=== PATIENT | female | born 1950 | race Caucasian/White ===

== ENCOUNTER 2018-12-16 13:47 | Inpatient (IN) | payer MEDICARE, BC ==
[2018-12-16] MEDS ORDERED: SODIUM CHLORIDE 0.9% 1,000 ML IV STA (14:25)
[2018-12-16] MEDS ORDERED: ACETAMINOPHEN TAB 325 MG TAB PO STA (14:26)
[2018-12-16 14:48] LABS: Basophils # (A) 0.1 k/uL (0-0.2); Basophils % (A) 0 %; Eosinophils % (A) 0 %; HCT 41.1 % (34.0-46.0); HGB 13.6 gm/dL (11.4-16.0); Lymphocytes % (A) 7 %; MCH 28.7 pg (25.0-35.0); MCV 86.9 fL (80.0-100.0); Mean Platelet Volume 6.6; Monocytes # (A) 0.6 k/uL (0-1.0); Monocytes % (A) 4 %; Neutrophils # (A) 13.8 k/uL (1.3-7.7); Neutrophils % (A) 89 %; Platelet Count 286 k/uL (150-450); RBC 4.73 m/uL (3.80-5.40); RDW 13.4 % (11.5-15.5); WBC 15.5 k/uL (3.8-10.6)
[2018-12-16 14:57] LABS: ALT 12 U/L (9-52); AST 17 U/L (14-36); African American GFR (CKD) >90 (>60 ml/min/1.73 sqM); Albumin 4.2 g/dL (3.5-5.0); Alkaline Phosphatase 87 U/L (38-126); Anion Gap 9 mmol/L; Blood Urea Nitrogen 16 mg/dL (7-17); Calcium 9.1 mg/dL (8.4-10.2); Carbon Dioxide 27 mmol/L (22-30); Chloride 101 mmol/L (98-107); Glucose 132 mg/dL (74-99); Lipase 30 U/L (23-300); Magnesium 1.7 mg/dL (1.6-2.3); Potassium 3.5 mmol/L (3.5-5.1); Sodium 137 mmol/L (137-145); Total Bilirubin 1.2 mg/dL (0.2-1.3)
--- NOTE | 2018-12-16 15:03 | ED ---
General Adult HPI <Rubén Schmitt - Last Filed: 12/16/18 18:28> - General Source: patient, RN notes reviewed, old records reviewed Mode of arrival: ambulatory Limitations: no limitations <Adolph King - Last Filed: 12/16/18 22:52> - General Chief complaint: Abdominal Pain Stated complaint: Abd pain Time Seen by Provider: 12/16/18 14:00 - History of Present Illness Initial comments: 68-year-old female patient past medical history of hypertension, status post cholecystectomy, hysterectomy, partial thyroidectomy presents ED with 2 days of abdominal pain periumbilically as well as her right lower quadrant with associated nausea. Patient denies any emesis. Patient states her bowel movements have been normal, denies any diarrhea. Patient denies any chest pain shortness of breath. Patient denies any other complaints at this time. Systemic: Pt denies fatigue, fever/chills, rash. Pt denies weakness, night sweats, weight loss. Neuro: Pt denies headache, visual disturbances, syncope or pre-syncope. HEENT: Pt denies ocular discharge or irritation, otalgia, rhinorrhea, pharyngitis or notable lymphadenopathy. Cardiopulmonary: Pt denies chest pain, SOB, heart palpitations, dyspnea on exertion. Abdominal/GI: Pt denies v/d. : Pt denies dysuria, burning w/ urination, frequency/urgency. Denies new onset urinary or bowel incontinence. MSK: Pt denies myalgia, loss of strength or function in extremities. Neuro: Pt denies new onset weakness, paresthesias. (Adolph King) - Related Data Home Medications Medication Instructions Recorded Confirmed Levothyroxine Sodium 88 mcg PO DAILY 12/16/18 12/16/18 Multivitamins, Thera [Multivitamin 1 tab PO DAILY 12/16/18 12/16/18 (formulary)] Naproxen Sodium [Aleve] 440 mg PO Q12HR PRN 12/16/18 12/16/18 Thyroid, Pork [[place] Thyroid] 30 mg PO DAILY 12/16/18 12/16/18 amLODIPine [Norvasc] 5 mg PO DAILY 12/16/18 12/16/18 Allergies Allergy/AdvReac Type Severity Reaction Status Date / Time No Known Allergies Allergy Verified 12/16/18 18:15 Review of Systems ROS Other: All systems not noted in ROS Statement are negative. <SchmittRubén - Last Filed: 12/16/18 18:28> ROS Other: All systems not noted in ROS Statement are negative. <Adolph King - Last Filed: 12/16/18 22:52> ROS Statement: Those systems with pertinent positive or pertinent negative responses have been documented in the HPI. Past Medical History Past Medical History: Hypertension History of Any Multi-Drug Resistant Organisms: None Reported Past Surgical History: Section, Cholecystectomy, Hysterectomy Additional Past Surgical History / Comment(s): patrtia thyroid removal Past Psychological History: No Psychological Hx Reported Smoking Status: Never smoker Past Alcohol Use History: None Reported Past Drug Use History: None Reported <Adolph King - Last Filed: 12/16/18 22:52> General Exam Limitations: no limitations <Adolph King - Last Filed: 12/16/18 22:52> - General Exam Comments Initial Comments: Constitutional: NAD, AOX3, Pt has pleasant affect. HEENT: NC/AT, trachea midline, neck supple, no lymphadenopathy. Posterior pharynx non erythematous, without exudates. External ears appear normal, without discharge. Mucous membranes moist. Eyes PERRLA, EOM intact. There is no scleral icterus. No pallor noted. Cardiopulmonary: RRR, no murmurs, rubs or gallops, no JVD noted. Lungs CTAB in anterior and posterior cisneros. No peripheral edema. Abdominal exam: Abdomen soft and non-distended. Abdomen mildly tender to palpation periumbilical as well as right lower quadrant region. No guarding or rigidity no ecchymoses no others of abdominal tenderness.. Bowel sounds active in LLQ. No hepatosplenomegaly. No ecchymosis Neuro: CN II-XII grossly intact. No nuchal rigidity. No raccon eyes, no carias sign, no hemotympanum. No cervical spinal tenderness. MSK: No posterior calf tenderness bilaterally, homans sign negative bilaterally. Posterior tibialis and radial pulse +2 bilaterally. Sensation intact in upper and lower extremities. Full active ROM in upper and lower extremities, 5/5 stregnth. (Adolph King) Course Vital Signs 12/16/18 12/16/18 12/16/18 13:54 15:14 17:46 Temperature 98.4 F 98.6 F Pulse Rate 124 H 81 70 Respiratory 20 18 19 Rate Blood Pressure 134/76 142/81 150/81 O2 Sat by Pulse 97 99 100 Oximetry 12/16/18 12/16/18 19:20 20:09 Temperature 98.9 F Pulse Rate 70 Respiratory 19 Rate Blood Pressure 170/79 O2 Sat by Pulse 100 Oximetry Medical Decision Making - Lab Data Result diagrams: 12/16/18 14:19 12/16/18 14:19 <Rubén Schmitt - Last Filed: 12/16/18 18:28> - Lab Data Result diagrams: 12/16/18 14:19 12/16/18 14:19 <ChristineAdolph J - Last Filed: 12/16/18 22:52> - Medical Decision Making Patient reevaluated by myself, Dr. Schmitt. Patient resting comfortably in bed. Patient states discomfort is minimal at rest. Patient states discomfort is worse with movement and examination. Abdomen is soft with moderate tenderness in the right lower quadrant with mild guarding. Patient updated on results and plan. Patient did previously seen Dr. Lockett approximately [address] Belle was notified through [facility] in the operating room of patient. Patient was reexamined and reevaluated by myself, Dr. Schmitt. I do agree with PA Findings. This includes diagnostic interpretation and treatment plan. (Rubén Schmitt) 68-year-old female patient past medical history of hypertension, status post cholecystectomy, hysterectomy, partial thyroidectomy presents ED with 2 days of abdominal pain periumbilically as well as her right lower quadrant with associated nausea. Patient denies any emesis. Patient states her bowel movements have been normal, denies any diarrhea. Patient denies any chest pain shortness of breath. Patient denies any other complaints at this time. Patient vital signs initially display tachycardia, likely secondary to pain. Resolved with analgesia IV fluids. Physical exam displayed: Abdomen mildly tender to palpation periumbilical as well as right lower quadrant region. No guarding or rigidity no ecchymoses no others of abdominal tenderness. Laboratory investigations revealed mild leukocytosis of 15.5, CMP revealed mild cytosis of 132. Lactic acid within normal limits. Magnesium lipase within normal limits. UA non-impressive. CT abdomen and pelvis displayed unconjugated mild acute appendicitis no abscess or free air. Associated mild regional small bowel ileus, 8 mm nonobstructing left renal calculi, incidental large 7 cm right hep atic dome cyst. Patient previously aware of cyst which has apparently grown 1 cm in the last 6 years. Initial imaging report stated that pt had diverticulitis, radiologist Dr. Villalta was contacted who stated he will addend report to reflect appendicits and not diverticulitis. Patient began on zosyn. Will be admitted to Dr. Jansen. Case discusse with Dr. Schmitt. (Adolph King) - Lab Data Lab Results 12/16/18 12/16/18 12/16/18 Range/Units 14:19 14:19 14:19 WBC 15.5 H (3.8-10.6) k/uL RBC 4.73 (3.80-5.40) m/uL Hgb 13.6 (11.4-16.0) gm/dL Hct 41.1 (34.0-46.0) % MCV 86.9 (80.0-100.0) fL MCH 28.7 (25.0-35.0) pg MCHC 33.0 (31.0-37.0) g/dL RDW 13.4 (11.5-15.5) % Plt Count 286 (150-450) k/uL Neutrophils % 89 % Lymphocytes % 7 % Monocytes % 4 % Eosinophils % 0 % Basophils % 0 % Neutrophils # 13.8 H (1.3-7.7) k/uL Lymphocytes # 1.0 (1.0-4.8) k/uL Monocytes # 0.6 (0-1.0) k/uL Eosinophils # 0.0 (0-0.7) k/uL Basophils # 0.1 (0-0.2) k/uL Sodium 137 (137-145) mmol/L Potassium 3.5 (3.5-5.1) mmol/L Chloride 101 (98-107) mmol/L Carbon Dioxide 27 (22-30) mmol/L Anion Gap 9 mmol/L BUN 16 (7-17) mg/dL Creatinine 0.65 (0.52-1.04) mg/dL Est GFR (CKD-EPI)AfAm >90 (>60 ml/min/1.73 sqM) Est GFR (CKD-EPI)NonAf >90 (>60 ml/min/1.73 sqM) Glucose 132 H (74-99) mg/dL Plasma Lactic Acid Raji 1.5 (0.7-2.0) mmol/L Calcium 9.1 (8.4-10.2) mg/dL Magnesium 1.7 (1.6-2.3) mg/dL Total Bilirubin 1.2 (0.2-1.3) mg/dL AST 17 (14-36) U/L ALT 12 (9-52) U/L Alkaline Phosphatase 87 (38-126) U/L Total Protein 7.0 (6.3-8.2) g/dL Albumin 4.2 (3.5-5.0) g/dL Lipase 30 (23-300) U/L Urine Color Urine Appearance (Clear) Urine pH (5.0-8.0) Ur Specific [place] (1.001-1.035) Urine Protein (Negative) Urine Glucose (UA) (Negative) Urine Ketones (Negative) Urine Blood (Negative) Urine Nitrite (Negative) Urine Bilirubin (Negative) Urine Urobilinogen (<2.0) mg/dL Ur Leukocyte Esterase (Negative) Urine RBC (0-5) /hpf Urine WBC (0-5) /hpf Ur Squamous Epith Cells (0-4) /hpf Amorphous Sediment (None) /hpf 12/16/18 Range/Units 14:42 WBC (3.8-10.6) k/uL RBC (3.80-5.40) m/uL Hgb (11.4-16.0) gm/dL Hct (34.0-46.0) % MCV (80.0-100.0) fL MCH (25.0-35.0) pg MCHC (31.0-37.0) g/dL RDW (11.5-15.5) % Plt Count (150-450) k/uL Neutrophils % % Lymphocytes % % Monocytes % % Eosinophils % % Basophils % % Neutrophils # (1.3-7.7) k/uL Lymphocytes # (1.0-4.8) k/uL Monocytes # (0-1.0) k/uL Eosinophils # (0-0.7) k/uL Basophils # (0-0.2) k/uL Sodium (137-145) mmol/L Potassium (3.5-5.1) mmol/L Chloride (98-107) mmol/L Carbon Dioxide (22-30) mmol/L Anion Gap mmol/L BUN (7-17) mg/dL Creatinine (0.52-1.04) mg/dL Est GFR (CKD-EPI)AfAm (>60 ml/min/1.73 sqM) Est GFR (CKD-EPI)NonAf (>60 ml/min/1.73 sqM) Glucose (74-99) mg/dL Plasma Lactic Acid Raji (0.7-2.0) mmol/L Calcium (8.4-10.2) mg/dL Magnesium (1.6-2.3) mg/dL Total Bilirubin (0.2-1.3) mg/dL AST (14-36) U/L ALT (9-52) U/L Alkaline Phosphatase (38-126) U/L Total Protein (6.3-8.2) g/dL Albumin (3.5-5.0) g/dL Lipase (23-300) U/L Urine Color Yellow Urine Appearance Clear (Clear) Urine pH 6.5 (5.0-8.0) Ur Specific [place] 1.007 (1.001-1.035) Urine Protein Negative (Negative) Urine Glucose (UA) Negative (Negative) Urine Ketones Negative (Negative) Urine Blood Trace H (Negative) Urine Nitrite Negative (Negative) Urine Bilirubin Negative (Negative) Urine Urobilinogen <2.0 (<2.0) mg/dL Ur Leukocyte Esterase Negative (Negative) Urine RBC 2 (0-5) /hpf Urine WBC 3 (0-5) /hpf Ur Squamous Epith Cells 1 (0-4) /hpf Amorphous Sediment Rare H (None) /hpf Disposition <Rubén Schmitt - Last Filed: 12/16/18 18:28> Is patient prescribed a controlled substance at d/c from ED?: No <Adolph King - Last Filed: 12/16/18 22:52> Clinical Impression: Appendicitis, acute Disposition: ADMITTED IP TO THIS HOSP Condition: Serious
[2018-12-16 15:20] LABS: Amorphous Sediment,Urine Rare /hpf; Appearance,Urine Clear (Clear); Bilirubin,Urine Negative (Negative); Blood,Urine Trace (Negative); Color,Urine Yellow; Glucose,Urine (UA) Negative (Negative); Ketones,Urine Negative (Negative); Leukocyte Esterase,Urine Negative (Negative); Nitrite,Urine Negative (Negative); PH, Urine 6.5 (5.0-8.0); Protein,Urine Negative (Negative); RBC,Urine 2 /hpf (0-5); Specific Gravity,Urine 1.007 (1.001-1.035); Squamous Epithelial Cell,Urine 1 /hpf (0-4); Urobilinogen,Urine <2.0 mg/dL (<2.0); WBC,Urine 3 /hpf (0-5)
--- NOTE | 2018-12-16 16:00 | CT ---
EXAMINATION TYPE: CT abdomen pelvis w con DATE OF EXAM: 12/16/2018 COMPARISON: NONE HISTORY: 68-year-old female Right lower quadrant pain, bloating and nausea. TECHNIQUE: Contiguous axial scanning of the abdomen and pelvis following administration of 100 ml Iso rox 300 IV contrast. Delayed images through the kidneys and coronal/sagittal reconstructions perform ed. CT DLP: 832.5 mGycm Automated exposure control for dose reduction was used. FINDINGS: Heart normal size without pericardial effusion. Lung bases clear without pleural effusion. Large cyst right hepatic dome measuring 6.9 cm. Additional smaller cyst just adjacent in the right li josephine lobe measuring 7 mm. Portal venous system is patent. No biliary ductal dilatation. Gallbladder not seen, likely surgically absent. Adrenal glands, right kidney, spleen, pancreas appear within normal limits. 8 mm nonobstructive calculus upper pole left kidney. No dilated small bowel, free fluid, or free air. Prominent fluid-filled small bowel loops in the lower abdomen and pelvis with some mild mesenteric st randing centered around a fluid-filled and mildly thickened appendix measuring up to 1 cm. Refer to a xial image 70 and coronal image 28. No mesenteric or retroperitoneal lymphadenopathy. Bladder and distended. Pelvic phleboliths. Uterus surgically absent. Neither ovary clearly delineated . No abnormal fluid collection in the pelvis or pelvic lymphadenopathy. Bones: Degenerative changes of the hips. Left L5 hemisacralization with degenerative changes lower duncan mbar spine. Grade 1 anterolisthesis at L4-L5. IMPRESSION: 1. EXAM POSITIVE FOR UNCOMPLICATED, MILD ACUTE DIVERTICULITIS. NO ABSCESS OR FREE AIR. 2. AN ASSOCIATED MILD REGIONAL SMALL BOWEL ILEUS. 3. 8 MM NONOBSTRUCTIVE LEFT RENAL CALCULUS. 4. INCIDENTAL LARGE 7 CM RIGHT HEPATIC DOME CYST.
[2018-12-16] MEDS ORDERED: AMOXIC-POT CLAV 875-125MG 1 EACH TAB PO STA (16:11)
[2018-12-16] MEDS ORDERED: AMOXIC-POT CLAV 875MG STARTER 2 EACH TABLET PO STA (16:36)
[2018-12-16] MEDS ORDERED: metroNIDAZOLE-NS PMX 500 MG in SALINE 1 100ML.BAG IVPB STA (17:11)
[2018-12-16] MEDS ORDERED: PIPERACILLIN-TAZOBACTAM 3.375 GM in SODIUM CHLORIDE 0.9% 100 ML IVPB STA (17:29)
[2018-12-16] MEDS ORDERED: MORPHINE SULFATE 4 MG/ML SYRINGE IV PRN (17:50)
[2018-12-16] MEDS ORDERED: NALOXONE 0.4 MG/ML 1 ML VIAL IV PRN (17:50)
[2018-12-16] MEDS: MORPHINE SULFATE 2 MG/ML SYRINGE IV PRN ×2 (18:24→23:51)
--- NOTE | 2018-12-16 20:34 | P.GSHP ---
History of Present Illness H&P Date: 12/16/18 CHIEF COMPLAINT: Right lower quadrant abdominal pain with appendicitis for 1 day. HISTORY OF PRESENT ILLNESS: The patient is a previously healthy 68-year-old female who presents with presents with 24-hour history of right lower quadrant abdominal pain. She does have history of colonoscopies usually every 5 years. No family history of colon cancer or personal history of colon polyps. Patient reports no previous pain like this before. The pain is moderate to severe sharp right lower quadrant. She reports some hunger and wants liquids. PAST MEDICAL HISTORY: See list. PAST SURGICAL HISTORY: See list. CURRENT MEDICATIONS: See list. ALLERGIES: See list. SOCIAL HISTORY: Non-tobacco user. FAMILY HISTORY: Denies Crohns disease and ulcerative colitis. REVIEW OF ORGAN SYSTEMS: CONSTITUTIONAL: Denies any fever or chills. Denies recent weight loss. HEENT: Denies any trouble with vision, hearing or nosebleeds. No difficulty swallowing. LYMPHATIC: The patient denies any lumps and bumps around the neck. ENDOCRINE: Denies any thyroid disorders. Denies any blood sugar glucose intolerance. RESPIRATORY: Denies shortness of breath including chronic cough. CARDIOVASCULAR: Denies history of chest pain with exertion. GASTROINTESTINAL: Denies regurgitation of bile at night as well as intermittent nausea. No blood in stools. GENITOURINARY: Denies any blood in urine or increased urinary frequency. MUSCULOSKELETAL: Denies current joint arthritis. NEUROLOGIC: Denies any numbness or tingling along the distal extremities. No seizure disorders or headaches. PSYCHIATRIC: Denies any depression or suicidal ideation. HEMATOLOGIC: Denies any abnormal bleeding or bruising. PHYSICAL EXAMINATION: GENERAL: Well developed and in no acute distress. Pleasant. HEENT: No sclera icterus. Extraocular movements grossly intact. Moist buccal mucosa. Head is atraumatic, normocephalic. Hears conversational speech. No nasal drainage. NECK: Supple without lymphadenopathy. No JV distention. CHEST: Non-labored respirations and equal bilateral excursions. CARDIOVASCULAR: Regular rate and rhythm. Palpable 2+ radial pulses. ABDOMEN: Soft, tender at the right lower quadrant without guarding. MUSCULOSKELETAL: No clubbing, cyanosis or edema. NEUROLOGIC: No focal or lateralizing signs. PSYCH: Appropriate affect. Alert and oriented to person, place and time. SKIN: Well perfused. Good skin turgor. LABS: Reviewed with elevated white blood cell count of 15,000 STUDIES: CT of the abdomen and pelvis independently reviewed with findings consistent with appendicitis. Ileus identified. REPORT: Also reviewed with findings of large hepatic cyst ASSESSMENT: 1. Right lower quadrant pain. 2. Appendicitis. 3. Leukocytosis. PLAN: 1. I have discussed benefits and risks of robotic appendectomy. 2. Bilateral SCDs. 3. Antibiotics. 4. DVT prophylaxis with heparin. 5. GI prophylaxis. Thank you very much for allowing me to participate in the care of your patient. Past Medical History Past Medical History: Hypertension History of Any Multi-Drug Resistant Organisms: None Reported Past Surgical History: Section, Cholecystectomy, Hysterectomy Additional Past Surgical History / Comment(s): patrtia thyroid removal Past Psychological History: No Psychological Hx Reported Smoking Status: Never smoker Past Alcohol Use History: None Reported Past Drug Use History: None Reported - Past Family History Mother Family Medical History: COPD Sister(s) Family Medical History: Cancer Additional Family Medical History / Comment(s): breast Medications and Allergies Home Medications Medication Instructions Recorded Confirmed Type Levothyroxine Sodium 88 mcg PO DAILY 12/16/18 12/16/18 History Multivitamins, Thera [Multivitamin 1 tab PO DAILY 12/16/18 12/16/18 History (formulary)] Naproxen Sodium [Aleve] 440 mg PO Q12HR PRN 12/16/18 12/16/18 History Thyroid, Pork [[place] Thyroid] 30 mg PO DAILY 12/16/18 12/16/18 History amLODIPine [Norvasc] 5 mg PO DAILY 12/16/18 12/16/18 History Allergies Allergy/AdvReac Type Severity Reaction Status Date / Time No Known Allergies Allergy Verified 12/16/18 18:15 Surgical - Exam Vital Signs Temp Pulse Resp BP Pulse Ox 98.4 F 124 H 20 134/76 97 12/16/18 13:54 12/16/18 13:54 12/16/18 13:54 12/16/18 13:54 12/16/18 13:54 Results - Labs 12/16/18 14:19 12/16/18 14:19 Abnormal Lab Results - Last 24 Hours (Table) 12/16/18 12/16/18 12/16/18 Range/Units 14:19 14: 14:42 WBC 15.5 H (3.8-10.6) k/uL Neutrophils # 13.8 H (1.3-7.7) k/uL Glucose 132 H (74-99) mg/dL Urine Blood Trace H (Negative) Amorphous Sediment Rare H (None) /hpf Diabetes panel 12/16/18 Range/Units 14:19 Sodium 137 (137-145) mmol/L Potassium 3.5 (3.5-5.1) mmol/L Chloride 101 (98-107) mmol/L Carbon Dioxide 27 (22-30) mmol/L BUN 16 (7-17) mg/dL Creatinine 0.65 (0.52-1.04) mg/dL Glucose 132 H (74-99) mg/dL Calcium 9.1 (8.4-10.2) mg/dL AST 17 (14-36) U/L ALT 12 (9-52) U/L Alkaline Phosphatase 87 (38-126) U/L Total Protein 7.0 (6.3-8.2) g/dL Albumin 4.2 (3.5-5.0) g/dL Calcium panel 12/16/18 Range/Units 14:19 Calcium 9.1 (8.4-10.2) mg/dL Albumin 4.2 (3.5-5.0) g/dL Pituitary panel 12/16/18 Range/Units 14:19 Sodium 137 (137-145) mmol/L Potassium 3.5 (3.5-5.1) mmol/L Chloride 101 (98-107) mmol/L Carbon Dioxide 27 (22-30) mmol/L BUN 16 (7-17) mg/dL Creatinine 0.65 (0.52-1.04) mg/dL Glucose 132 H (74-99) mg/dL Calcium 9.1 (8.4-10.2) mg/dL Adrenal panel 12/16/18 Range/Units 14:19 Sodium 137 (137-145) mmol/L Potassium 3.5 (3.5-5.1) mmol/L Chloride 101 (98-107) mmol/L Carbon Dioxide 27 (22-30) mmol/L BUN 16 (7-17) mg/dL Creatinine 0.65 (0.52-1.04) mg/dL Glucose 132 H (74-99) mg/dL Calcium 9.1 (8.4-10.2) mg/dL Total Bilirubin 1.2 (0.2-1.3) mg/dL AST 17 (14-36) U/L ALT 12 (9-52) U/L Alkaline Phosphatase 87 (38-126) U/L Total Protein 7.0 (6.3-8.2) g/dL Albumin 4.2 (3.5-5.0) g/dL
[2018-12-16 20:42] VITALS: BMI 29.5
[2018-12-16] MEDS: SODIUM CHLORIDE 0.45% 1,000 ML IV SCH (20:50)
--- NOTE | 2018-12-16 22:53 | ED ---
Medical Decision Making - Medical Decision Making pt admitted to Dr. Gaxiola not Dr. lozano. - Lab Data Result diagrams: 12/16/18 14:19 12/16/18 14:19 Lab Results 12/16/18 12/16/18 12/16/18 Range/Units 14:19 14:19 14:19 WBC 15.5 H (3.8-10.6) k/uL RBC 4.73 (3.80-5.40) m/uL Hgb 13.6 (11.4-16.0) gm/dL Hct 41.1 (34.0-46.0) % MCV 86.9 (80.0-100.0) fL MCH 28.7 (25.0-35.0) pg MCHC 33.0 (31.0-37.0) g/dL RDW 13.4 (11.5-15.5) % Plt Count 286 (150-450) k/uL Neutrophils % 89 % Lymphocytes % 7 % Monocytes % 4 % Eosinophils % 0 % Basophils % 0 % Neutrophils # 13.8 H (1.3-7.7) k/uL Lymphocytes # 1.0 (1.0-4.8) k/uL Monocytes # 0.6 (0-1.0) k/uL Eosinophils # 0.0 (0-0.7) k/uL Basophils # 0.1 (0-0.2) k/uL Sodium 137 (137-145) mmol/L Potassium 3.5 (3.5-5.1) mmol/L Chloride 101 (98-107) mmol/L Carbon Dioxide 27 (22-30) mmol/L Anion Gap 9 mmol/L BUN 16 (7-17) mg/dL Creatinine 0.65 (0.52-1.04) mg/dL Est GFR (CKD-EPI)AfAm >90 (>60 ml/min/1.73 sqM) Est GFR (CKD-EPI)NonAf >90 (>60 ml/min/1.73 sqM) Glucose 132 H (74-99) mg/dL Plasma Lactic Acid Raji 1.5 (0.7-2.0) mmol/L Calcium 9.1 (8.4-10.2) mg/dL Magnesium 1.7 (1.6-2.3) mg/dL Total Bilirubin 1.2 (0.2-1.3) mg/dL AST 17 (14-36) U/L ALT 12 (9-52) U/L Alkaline Phosphatase 87 (38-126) U/L Total Protein 7.0 (6.3-8.2) g/dL Albumin 4.2 (3.5-5.0) g/dL Lipase 30 (23-300) U/L Urine Color Urine Appearance (Clear) Urine pH (5.0-8.0) Ur Specific [place] (1.001-1.035) Urine Protein (Negative) Urine Glucose (UA) (Negative) Urine Ketones (Negative) Urine Blood (Negative) Urine Nitrite (Negative) Urine Bilirubin (Negative) Urine Urobilinogen (<2.0) mg/dL Ur Leukocyte Esterase (Negative) Urine RBC (0-5) /hpf Urine WBC (0-5) /hpf Ur Squamous Epith Cells (0-4) /hpf Amorphous Sediment (None) /hpf 12/16/18 Range/Units 14:42 WBC (3.8-10.6) k/uL RBC (3.80-5.40) m/uL Hgb (11.4-16.0) gm/dL Hct (34.0-46.0) % MCV (80.0-100.0) fL MCH (25.0-35.0) pg MCHC (31.0-37.0) g/dL RDW (11.5-15.5) % Plt Count (150-450) k/uL Neutrophils % % Lymphocytes % % Monocytes % % Eosinophils % % Basophils % % Neutrophils # (1.3-7.7) k/uL Lymphocytes # (1.0-4.8) k/uL Monocytes # (0-1.0) k/uL Eosinophils # (0-0.7) k/uL Basophils # (0-0.2) k/uL Sodium (137-145) mmol/L Potassium (3.5-5.1) mmol/L Chloride (98-107) mmol/L Carbon Dioxide (22-30) mmol/L Anion Gap mmol/L BUN (7-17) mg/dL Creatinine (0.52-1.04) mg/dL Est GFR (CKD-EPI)AfAm (>60 ml/min/1.73 sqM) Est GFR (CKD-EPI)NonAf (>60 ml/min/1.73 sqM) Glucose (74-99) mg/dL Plasma Lactic Acid Raji (0.7-2.0) mmol/L Calcium (8.4-10.2) mg/dL Magnesium (1.6-2.3) mg/dL Total Bilirubin (0.2-1.3) mg/dL AST (14-36) U/L ALT (9-52) U/L Alkaline Phosphatase (38-126) U/L Total Protein (6.3-8.2) g/dL Albumin (3.5-5.0) g/dL Lipase (23-300) U/L Urine Color Yellow Urine Appearance Clear (Clear) Urine pH 6.5 (5.0-8.0) Ur Specific [place] 1.007 (1.001-1.035) Urine Protein Negative (Negative) Urine Glucose (UA) Negative (Negative) Urine Ketones Negative (Negative) Urine Blood Trace H (Negative) Urine Nitrite Negative (Negative) Urine Bilirubin Negative (Negative) Urine Urobilinogen <2.0 (<2.0) mg/dL Ur Leukocyte Esterase Negative (Negative) Urine RBC 2 (0-5) /hpf Urine WBC 3 (0-5) /hpf Ur Squamous Epith Cells 1 (0-4) /hpf Amorphous Sediment Rare H (None) /hpf Disposition Clinical Impression: Appendicitis, acute Disposition: ADMITTED IP TO THIS [facility] Condition: Serious Is patient prescribed a controlled substance at d/c from ED?: No
[2018-12-17] MEDS ORDERED: metroNIDAZOLE-NS PMX 500 MG in SALINE 1 100ML.BAG IVPB SCH
[2018-12-17] MEDS: PIPERACILLIN-TAZOBACTAM 3.375 GM in SODIUM CHLORIDE 0.9% 100 ML IVPB SCH ×3 (01:02→16:51)
[2018-12-17] MEDS: SODIUM CHLORIDE 0.45% 1,000 ML IV SCH ×2 (06:29→10:00)
[2018-12-17] MEDS ORDERED: LEVOTHYROXINE 88 MCG TAB PO SCH (06:30)
[2018-12-17 08:48] LABS: Basophils % (A) 0 %; Eosinophils # (A) 0.2 k/uL (0-0.7); Eosinophils % (A) 2 %; HCT 39.7 % (34.0-46.0); HGB 12.7 gm/dL (11.4-16.0); Lymphocytes # (A) 1.6 k/uL (1.0-4.8); Lymphocytes % (A) 17 %; MCH 28.6 pg (25.0-35.0); MCV 89.4 fL (80.0-100.0); Mean Platelet Volume 6.6; Monocytes # (A) 0.3 k/uL (0-1.0); Monocytes % (A) 3 %; Neutrophils # (A) 7.3 k/uL (1.3-7.7); Neutrophils % (A) 76 %; Platelet Count 293 k/uL (150-450); RBC 4.44 m/uL (3.80-5.40); RDW 13.5 % (11.5-15.5); WBC 9.6 k/uL (3.8-10.6)
[2018-12-17] MEDS ORDERED: amLODIPine 5 MG TAB PO SCH (09:00)
[2018-12-17] MEDS ORDERED: THYROID, PORK 30 MG TAB PO SCH (09:00)
[2018-12-17] MEDS ORDERED: ceFAZolin IN SWFI 2 GM/20 ML SYRINGE IVP ONE (10:11)
[2018-12-17] MEDS ORDERED: HEPARIN SODIUM,PORCINE 5,000 UNIT/ML 1 ML VIAL SQ STA (10:11)
[2018-12-17] MEDS ORDERED: ceFAZolin IN SWFI 2 GM/20 ML SYRINGE IVP STA (10:11)
[2018-12-17] MEDS ORDERED: IV FLUID CONTINUATION 900 ML IV ONE (10:34)
[2018-12-17] MEDS ORDERED: DEXAMETHASONE SOD PHOSPHATE 10 MG/ML 1 ML VIAL IV ONE (11:11)
[2018-12-17] MEDS ORDERED: ONDANSETRON 4 MG/2 ML VIAL IVP ONE (11:11)
--- NOTE | 2018-12-17 13:18 | P.HPADDEND ---
H&P Addendum H&P Addendum Date: 12/17/18 Benefits and risks of robotic appendectomy described.
[2018-12-17] MEDS ORDERED: PROPOFOL 10 MG/ML 20 ML VIAL IV ONE (13:26)
[2018-12-17] MEDS ORDERED: ROCURONIUM BROMIDE 10 MG/ML 10 ML VIAL IV ONE (13:26)
[2018-12-17] MEDS ORDERED: GLYCOPYRROLATE 0.2 MG/ML 2 ML VIAL ONE (13:26)
[2018-12-17] MEDS ORDERED: LIDOCAINE 1% INJ 10MG/ML (20 ML MDV) ONE (13:26)
[2018-12-17] MEDS ORDERED: fentaNYL (PF) 50 MCG/ML 2 ML AMP ONE (13:26)
[2018-12-17] MEDS ORDERED: KETOROLAC 30 MG/ML 1 ML VIAL ONE (13:26)
[2018-12-17] MEDS ORDERED: MIDAZOLAM 2 MG/2 ML VIAL ONE (13:26)
[2018-12-17] MEDS ORDERED: NEOSTIGMINE 1 MG/ML 10 ML VIAL ONE (13:26)
[2018-12-17] MEDS ORDERED: LIDOCAINE 1%-EPI 1:100,000 20 ML VIAL SQ ONE (14:16)
[2018-12-17] MEDS ORDERED: LACTATED RINGERS 1,000 ML IV ONE (14:44)
[2018-12-17] MEDS ORDERED: ACETAMINOPHEN TAB 325 MG TAB PO PRN (14:50)
[2018-12-17] MEDS ORDERED: ACETAMINOPHEN IV (For NPO) 1,000 MG in EMPTY BAG 1 BAG IVPB ONE (14:50)
[2018-12-17] MEDS ORDERED: ONDANSETRON 4 MG/2 ML VIAL IVP PRN (14:50)
--- NOTE | 2018-12-17 14:54 | P.OP ---
Date of Procedure: 12/17/18 Preoperative Diagnosis: Acute appendicitis Postoperative Diagnosis: Same Procedure(s) Performed: Robot appendectomy Pathology: other (appendix) Condition: stable Operative Findings: 1. Acute appendicitis affecting entire body and base of appendix 2. Tip of cecum resected for necrotic base of appendix 3. Console time 16 minutes. Description of Procedure: No lifting over 10 pounds in December 28. May shower. No bath tub soaks until December 28. Diet as tolerated. Notify surgeon for temperature over 101.5, increased redness along incision, increased pain along surgical site. Remove dressing December 23.
[2018-12-17] MEDS ORDERED: KETOROLAC 30 MG/ML 1 ML VIAL IVP SCH (15:00)
[2018-12-17] MEDS: HYDROmorphone 1 MG/ML 1 ML SYRINGE IVP ONE ×2 (15:24→15:36)
--- NOTE | 2018-12-17 16:53 | P.DS ---
Providers Date of admission: 12/16/18 18:28 Expected date of discharge: 12/17/18 Attending physician: Vianey Gaxiola Primary care physician: Edna Padilla [facility] Course: Patient is seen after appendectomy. She is doing well. Patient cleared for discharge. Discharge instructions reviewed. Patient Condition at Discharge: Serious Plan - Discharge Summary Discharge Rx Participant: No New Discharge Prescriptions: Continue amLODIPine [Norvasc] 5 mg PO DAILY Thyroid, Pork [[place] Thyroid] 30 mg PO DAILY Multivitamins, Thera [Multivitamin (formulary)] 1 tab PO DAILY Levothyroxine Sodium 88 mcg PO DAILY Naproxen Sodium [Aleve] 440 mg PO Q12HR PRN PRN Reason: pain Discharge Medication List Levothyroxine Sodium 88 mcg PO DAILY 12/16/18 [History] Multivitamins, Thera [Multivitamin (formulary)] 1 tab PO DAILY 12/16/18 [History] Naproxen Sodium [Aleve] 440 mg PO Q12HR PRN 12/16/18 [History] Thyroid, Pork [[place] Thyroid] 30 mg PO DAILY 12/16/18 [History] amLODIPine [Norvasc] 5 mg PO DAILY 12/16/18 [History] Follow up Appointment(s)/Referral(s): Vianey Gaxiola MD [STAFF PHYSICIAN] - 12/28/18 Edna Padilla DO [Primary Care Provider] - 1-2 days Patient Instructions/Handouts: Laparoscopic Appendectomy (DC) Activity/Diet/Wound Care/Special Instructions: No lifting over 10 pounds in December 28. May shower. No bath tub soaks until December 28. Diet as tolerated. Notify surgeon for temperature over 101.5, increased redness along incision, increased pain along surgical site. Remove dressing December 23. Discharge Disposition: HOME SELF-CARE
[2018-12-17 18:27] VITALS: RESP 18
[2018-12-17 21:49] VITALS: BP 149/85; PULSE 88; TEMP 98.2
== END 2018-12-17 21:40 | disposition home or self-care (01) | DRG 342 ==
LOC: EC 13:47 → 6PED 18:28 → OBSVTOIN 18:28
PROVIDERS: ADMIT Surgery Plastic and Reconstructive Surgery; ATTEND Surgery Plastic and Reconstructive Surgery
PROC: 8E0W8CZ Robotic Assisted Procedure of Trunk Region, Via Natural or Artificial Opening Endoscopic (ICD-10-PCS; 2018-12-17)
PROC: 0DTJ4ZZ Resection of Appendix, Percutaneous Endoscopic Approach (ICD-10-PCS; principal; 2018-12-17 13:30)
DX: K35.80 Unspecified acute appendicitis (principal); K56.7 Ileus, unspecified; I10 Essential (primary) hypertension; N20.0 Calculus of kidney; K76.89 Other specified diseases of liver; Z79.890 Hormone replacement therapy; Z79.899 Other long term (current) drug therapy; Z82.5 Family history of asthma and other chronic lower respiratory diseases; Z90.49 Acquired absence of other specified parts of digestive tract; Z90.710 Acquired absence of both cervix and uterus; Z80.3 Family history of malignant neoplasm of breast; E89.0 Postprocedural hypothyroidism
CPT/HCPCS: 36415; 74177; 80053; 81001; 83605; 83690; 83735; 85025; 87040; 96361; 96365; 96366; 96375; 99285

== ENCOUNTER → 2019-03-02 | Outpatient (CLI) | payer MEDICARE, BC ==
[2019-03-02 14:46] LABS: African American GFR (CKD) >90 (>60 ml/min/1.73 sqM); Blood Urea Nitrogen 15 mg/dL (7-17)
--- NOTE | 2019-03-03 07:39 | CT ---
EXAMINATION TYPE: CT brain w con DATE OF EXAM: 03/02/2019 COMPARISON: None HISTORY: 68-year-old female with Headaches, usually RT side evangelical, since falling and injuring face 2018 CT DLP: 1180 mGycm Automated exposure control for dose reduction was used. Technique: Axial scanning of the head is performed with IV Contrast, patient injected with 100 mL of Isovue 300. Coronal and sagittal reconstructions performed. FINDINGS: Persistent CSF space along the posterior superior aspect of the third ventricle compatible with padmaja l variation, persistent cavum vergae. There appears to be a focus of extra-axial enhancement along the right midline falx, superiorly near the frontoparietal junction, reference axial image 47 and coronal image 28 measuring 1.3 cm AP by 1.2 cm craniocaudal by 0.6 cm wide. There is no other abnormal enhancing mass or midline shift identified. The ventricles and sulci are within normal limits in size. Dural venous sinuses are patent. Persistent origin right posterior cerebral artery and dominant left vertebral artery. The globes are intact and the visualized sinuses are clear. Mastoid air cells well pneumatized. IMPRESSION: 1.3 x 1.2 x 0.6 cm enhancing extra-axial lesion along the right midline falx, superiorly most likely represents a small meningioma. Consider 6 month MRI follow-up to reassess. 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
== END | disposition home or self-care (01) ==
LOC: RADCTMAIN 14:12
PROVIDERS: ATTEND Family Medicine
DX: G93.9 Disorder of brain, unspecified (principal); Q04.8 Other specified congenital malformations of brain; R51 Headache
CPT/HCPCS: 82565; 84520; 70460; 36415; Q9967

== ENCOUNTER → 2020-01-30 | Outpatient (CLI) | payer MEDICARE, BC ==
--- NOTE | 2020-01-30 12:28 | US ---
EXAMINATION TYPE: US venous doppler duplex LE RT DATE OF EXAM: 01/30/2020 12:09 PM COMPARISON: NONE CLINICAL HISTORY: M79.661,R22.41 PAIN AND SWELLIGN RT LOWER LIMB. SIDE PERFORMED: Right TECHNIQUE: The lower extremity deep venous system is examined utilizing real time linear array sonog wilda with graded compression, doppler sonography and color-flow sonography. VESSELS IMAGED: External Iliac Vein (EIV) Common Femoral Vein Deep Femoral Vein Greater Saphenous Vein * Femoral Vein Popliteal Vein Small Saphenous Vein * Proximal Calf Veins (* superficial vessels) Right Leg: Negative for DVT IMPRESSION: 1. No diagnostic evidence of DVT as visualized.
== END | disposition home or self-care (01) ==
LOC: RADUSWWP 11:39
PROVIDERS: ATTEND Family Medicine
DX: M79.661 Pain in right lower leg (principal)

== ENCOUNTER → 2020-03-19 | Outpatient (CLI) | payer MEDICARE, BC ==
--- NOTE | 2020-03-19 08:40 | MR ---
EXAMINATION TYPE: MR knee RT wo con DATE OF EXAM: 03/19/2020 COMPARISON: Plain film 02/17/2020 HISTORY: Right knee pain TECHNIQUE: Multiplanar, multisequence imaging of the right knee is performed without IV contrast. FINDINGS: MEDIAL MENISCUS: Posterior horn of the medial meniscus shows abnormal increased intrinsic signal, sag ittal image #7 shows some linear increased signal which is thought to extend to the articular surface . LATERAL MENISCUS: Abnormal increased intrinsic signal is present, the meniscus is attenuated, coronal image #21 show some linear increased signal which extends to the articular surface. Sagittal images show diffuse abnormal signal consistent with complex tear, sagittal image 22 CRUCIATE LIGAMENTS: The anterior and posterior cruciate ligaments are intact and unremarkable. COLLATERAL LIGAMENTS: The medial collateral ligament and lateral collateral ligament complex are inta ct and unremarkable. EXTENSOR MECHANISM: Visualized quadriceps and patellar tendons are intact. EFFUSION: Suprapatellar joint effusion is present. POPLITEAL CYST: No popliteal/kaye cyst. TRICOMPARTMENT SPACES: There is joint space loss in the medial and lateral compartments and there is associated marginal spurring CARTILAGE: Grade 3 to grade IV chondromalacia present in the lateral compartment, there is a fissure present in the posterior patella atelectasis, sagittal image 18. Grade 2 to grade III chondromalacia in the medial compartment BONE MARROW SIGNAL: Probable geodes present within the proximal tibia lateral compartment with some a ssociated probable reactive marrow signal changes present in the proximal tibia laterally and also po sterior patella, air is a bone island in medial femoral condyle OTHER: Subcutaneous edema changes are present. IMPRESSION: Osteoarthritis. Probable degenerative tears involving the menisci as described. Joint effusion.
== END | disposition home or self-care (01) ==
LOC: RADMRIMAIN 07:18
PROVIDERS: ATTEND Orthopaedic Surgery
DX: M17.11 Unilateral primary osteoarthritis, right knee (principal)

== ENCOUNTER → 2020-04-18 | Outpatient (CLI) | payer MEDICARE, BC | END | disposition home or self-care (01) | LOC: LABPAT 13:27 | PROVIDERS: ATTEND Orthopaedic Surgery | DX: Z01.812 Encounter for preprocedural laboratory examination (principal) | CPT/HCPCS: 87070 ==

== ENCOUNTER 2020-05-14 10:49 | Inpatient (IN) | payer MEDICARE, BC ==
[2020-05-08 16:05] VITALS: BMI 32.1
--- NOTE | 2020-05-13 10:46 | HP ---
HISTORY AND PHYSICAL REASON FOR ADMISSION: Surgery is scheduled for 05/14/2020 HISTORY OF PRESENT ILLNESS: Chelsea Adkins is a 69-year-old patient seen with symptomatic right knee osteoarthritis. We discussed options for treatment. She elected to proceed with right total knee arthroplasty. Consent was obtained. Medical clearance was by Dr. Edna Padilla. PAST MEDICAL HISTORY: Hypertension, hypothyroidism. PAST SURGICAL HISTORY: Appendectomy, cervical spine surgery. MEDICATIONS: Amlodipine, Jessie Thyroid, levothyroxine. ALLERGIES: None. SOCIAL HISTORY: She denies current tobacco use. PHYSICAL EVALUATION OF THE RIGHT KNEE: Range of motion is -3 to 100 degrees. Mild to moderate effusion present. Tenderness along the medial lateral joint lines. Crepitus along all 3 compartments. Ligaments stable. Hip rotation without pain. Distal neurovascular exam intact. RADIOGRAPHS: Radiographs of the right knee reveal severe osteoarthritic changes. IMPRESSION: 1. Right knee osteoarthritis. 2. Hypertension. 3. Hypothyroidism. PLAN: Right total knee arthroplasty. Surgery 05/14/2020. MMODL / IJN: [id number] /
[~2020-05-14 10:49] MED LIST: HYDROmorphone 0.5 MG/0.5 ML SYRINGE IVP PRN; MIDAZOLAM 2 MG/2 ML VIAL IV PRN; ROPIVACAINE 246.25 MG, EPINEPHrine 0.5 MG, KETOROLAC 30 MG, cloNIDine HCL/PF 80 MCG, WA... MISCELLANE ONE; TRANEXAMIC ACID 1,000 MG in SODIUM CHLORIDE 0.9% 100 ML IVPB ONE
[2020-05-14] MEDS: ACETAMINOPHEN TAB 500 MG TAB PO ONE ×2 (11:06→15:57)
[2020-05-14] MEDS: MELOXICAM 7.5 MG TAB PO ONE ×2 (11:06→15:58)
[2020-05-14] MEDS: LACTATED RINGERS 1,000 ML IV SCH ×3 (11:19→15:59)
[2020-05-14] MEDS ORDERED: LIDOCAINE 1% (10MG/ML) FOR IV START INTRADERMA ONE (11:19)
[2020-05-14] MEDS: DEXAMETHASONE SOD PHOSPHATE 4 MG/ML 1 ML VIAL IV ONE ×2 (11:21→15:58)
[2020-05-14] MEDS: ONDANSETRON 4 MG/2 ML VIAL IVP ONE ×2 (11:21→15:58)
--- NOTE | 2020-05-14 11:51 | P.ANPRN ---
Procedure Note - Anesthesia - Nerve Block Performed Right Adductor Canal Infusion Time Out Performed: Yes (1132) Date of Procedure: 05/14/20 Procedure Start Time: 11:33 Procedure Stop Time: 11:39 Location of Patient: PreOp Indication: Acute Post-Operative Pain, Requested by Surgeon Specifically requested for management of pain by DrKvng: Bipin Cabrera Sedation Type: Sedate with meaningful contact maintained Preparation: Sterile Prep Position: Supine Catheter Depth at Skin (cm): 10 Catheter: Indwelling Needle Types: Pajunk Needle Gauge: 21 Ultrasound used to visualize needle placement: Yes Ultrasound used to observe medication spread: Yes Injectate: 0.5% Ropivacaine (see comment for volume) (20cc) Blood Aspirated: No Pain Paresthesia on Injection Noted: No Resistance on Injection: Normal Image Stored and Saved: Yes Events: Uneventful and Well Tolerated
[2020-05-14] MEDS ORDERED: ROPIVACAINE 0.2%-NS ON-Q PUMP 1,090 MG, EMPTY PAIN BALL 1 EACH MISCELLANE PRN (11:58)
[2020-05-14] MEDS ORDERED: KETAMINE 10 MG/ML 20 ML VIAL ONE (12:48)
[2020-05-14] MEDS ORDERED: SODIUM CHLORIDE 0.9% 100 ML BAG ONE (12:48)
[2020-05-14] MEDS ORDERED: TRANEXAMIC ACID 1,000 MG/10 ML VIAL ONE (12:48)
[2020-05-14] MEDS ORDERED: PROPOFOL 10 MG/ML 20 ML VIAL IV ONE (12:48)
[2020-05-14] MEDS ORDERED: LIDOCAINE 1% INJ 10MG/ML (20 ML MDV) ONE (12:48)
[2020-05-14] MEDS ORDERED: MIDAZOLAM 2 MG/2 ML VIAL ONE (12:48)
[2020-05-14] MEDS ORDERED: ceFAZolin 1,000 MG in SODIUM CHLORIDE 0.9% 1,000 ML IRRIGATION ONE (13:26)
[2020-05-14] MEDS ORDERED: LACTATED RINGERS 1,000 ML IV ONE (14:01)
[2020-05-14] MEDS ORDERED: HYDROmorphone 0.5 MG/0.5 ML SYRINGE IVP PRN ×2 (14:30)
[2020-05-14] MEDS ORDERED: HYDROmorphone 0.2 MG/1 ML SYRINGE IVP PRN (14:30)
[2020-05-14] MEDS ORDERED: ONDANSETRON 4 MG/2 ML VIAL IVP PRN (14:30)
[2020-05-14] MEDS ORDERED: NALOXONE 0.4 MG/ML 1 ML VIAL IV PRN (14:30)
--- NOTE | 2020-05-14 14:30 | P.OP ---
Date of Procedure: 05/14/20 Preoperative Diagnosis: Right knee osteoarthritis Postoperative Diagnosis: Right knee osteoarthritis Procedure(s) Performed: Right total knee arthroplasty Implants: 1. Depuy attune size 4 right cruciate retaining cemented femur 2. Depuy attune size 4 fixed bearing cemented tibial baseplate 3. Depuy attune size 4 fixed bearing cruciate retaining 7 mm polyethylene tibial insert 4. Depuy attune 35 mm all polyethylene cemented patella Anesthesia: regional (Adductor canal catheter), local, spinal Surgeon: Bipin Cabrera Placement Manager #1: Raulito Kurtz Estimated Blood Loss (ml): 45 Pathology: other (Bone) Condition: stable Disposition: PACU Indications for Procedure: 69-year-old patient seen with symptomatic right knee osteoarthritis. After treatment options were discussed, she elected to proceed with total knee art hroplasty. Operative Findings: See description of procedure Description of Procedure: Patient was taken to the operative suite after having an adductor canal catheter placed by the department of anesthesia. Patient underwent a spinal anesthetic by the department of anesthesia. Patient was given preoperative IV intake antibiotics and TXA. A well-padded tourniquet was placed about the right lower extremity. The lower extremity was then prepped and draped in the normal sterile orthopedic fashion. The extremity was elevated, a tourniquet was insufflated to 300. A standard anterior incision was made sharply through skin. Dissection was taken down through the subcutaneous soft tissues down to the extensor mechanism. A medial arthrotomy was performed, patella was everted and knee was flexed. There was advanced osteoarthritis noted. I introduced my distal intramedullary femoral drill. I then introduced the distal femoral cutting jig. Fredo JIMENEZ secured the cutting jig with 2 pins. I held retractors in position while Fredo JIMENEZ performed the distal femoral resection through the guide area we now removed her distal femoral cutting guide. We now placed our 4-in-1 femoral cutting block and positioned and it was secured with 2 pins by Fredo JIMENEZ while I held the block in position. The distal femoral finishing was now completed. A proximal tibial cutting guide was positioned. I held the guide in the appropriate position with both hands well Fredo JIMENEZ inserted stabilizing pins into the guide. Proximal tibial cut was made. We now placed a trial femoral component into position, along with an appropriate size tibial tray and insert. We now took the knee through range of motion and had full extension good flexion and good overall soft tissue balance noted. The patella was everted and stabilized with 2 towel clips held by Fredo JIMENEZ while I performed a flush with patellar quad tendon utilizing a fresh sawblade. We templated the patella, appropriate drill holes were made. An appropriate trial patella was positioned, knee was taken through full range of motion with the patella tracking very nicely. The trial patella was removed. Drill holes were made through the femoral component. All trial components were removed after marking off the appropriate rotation of the tibia. Retractors w ere now positioned along the proximal tibia. An appropriate keel punch was made with the appropriate size tibial guide by myself on Fredo JIMENEZ assisted by holding retractors. At this point appropriate size implants were chosen and opened. The joint was irrigated copiously with pulse lavage mechanical irrigation. The posterior capsule was infiltrated with local analgesic. The wound was irrigated with pulse lavage mechanical irrigation. We mixed antibiotic methylmethacrylate. We placed the knee into flexion. We placed multiple retractors assisted by Fredo JIMENEZ to expose the proximal tibia. Once the methyl methacrylate was ready, the tibial component was cemented into place removing any excess methylmethacrylate form by both myself and Fredo JIMENEZ. The femoral component was cemented into place removing the removing any excess methylmethacrylate performed by both myself and Fredo JIMENEZ. We then inserted the appropriate size polyethylene tibial insert. We made sure that it was locked into position. We took the knee into full extension, and then back in a flexion making sure we had removed any excess methylmethacrylate. The patellar component was then cemented down and secured with clamp. Excess methylmethacrylate removed. We kept the knee in full extension, patellar clamp in position until methylmethacrylate had hardened. Once it had hardened the patellar clamp was removed. The knee was taken through full range of motion. The patella tracked nicely. There was good soft tissue balancing. The tourniquet was now released. Additional hemostasis was achieved via electrocautery. A second gram of TXA was given. The wound again was irrigated with pulse lavage mechanical irrigation. The superficial soft tissues were infiltrated local analgesic. The extensor mechanism was repaired with Vicryl. We checked the repair with range of motion and it was stable. The subcutaneous soft tissues were repaired with Vicryl in layers. The skin was approximated with pernio/Dermabond. Sterile dressings were applied followed by loose web roll and Maciej bandage. The patient was transferred to a bed, and taken to recovery in stable and satisfactory condition. Fredo JIMENEZ assisted with this complex procedure.
--- NOTE | 2020-05-14 16:35 | XR ---
EXAMINATION TYPE: XR knee limited RT DATE OF EXAM: 05/14/2020 COMPARISON: NONE HISTORY: 69-year-old female evaluation for postoperative abnormality in alignment TECHNIQUE: 2 views FINDINGS: Images show placement of right total knee arthroplasty. Both distal femoral and proximal tibial compo nents of the prosthesis are well seated without periprosthetic fracture. Alignment grossly anatomic. Anterior soft tissue swelling with scattered soft tissue air as well as intra-articular air compatibl e with recent operation. Anterior skin myrna are present. IMPRESSION: Uncomplicated postoperative appearance right total knee arthroplasty.
[2020-05-14] MEDS: HYDROcodone/APAP 5-325MG 1 EACH TAB PO PRN (17:26)
[2020-05-14] MEDS: SENNOSIDES-DOCUSATE SODIUM 1 EACH TAB PO SCH (22:09)
[2020-05-15] MEDS: HYDROcodone/APAP 5-325MG 1 EACH TAB PO PRN ×4 (00:32→19:25)
[2020-05-15] MEDS: LACTATED RINGERS 1,000 ML IV SCH ×3 (05:06→16:12)
[2020-05-15] MEDS: MELOXICAM 7.5 MG TAB PO SCH (07:27)
[2020-05-15] MEDS: ENOXAPARIN 30 MG/0.3 ML SYRINGE SQ SCH ×2 (07:27→20:53)
--- NOTE | 2020-05-15 08:15 | P.PN ---
Progress Note - Text Progress Note Date: 05/15/20 (864) Anesthesiology Postop day 1 status post total knee arthroplasty with adductor canal catheter. Patient doing well. VAS 0 out of 10. Gross strength intact in lower extremity. Afebrile. Denies alterations in sensorium. Catheter site intact. Heart regular rate Lungs nonlabored Abdomen nondistended Assessment: Postop day 1 status post total knee arthroplasty with adductor canal catheter Plan: All questions answered. Maintain catheter 2 more days with patient removal at home. Instructions were given at discharge.
[2020-05-15 08:21] LABS: Basophils % (A) 0 %; Eosinophils % (A) 0 %; HCT 35.1 % (34.0-46.0); Lymphocytes % (A) 8 %; MCH 30.1 pg (25.0-35.0); MCHC 34.2 g/dL (31.0-37.0); MCV 88.1 fL (80.0-100.0); Mean Platelet Volume 6.7; Monocytes # (A) 0.7 k/uL (0-1.0); Monocytes % (A) 5 %; Neutrophils # (A) 11.4 k/uL (1.3-7.7); Neutrophils % (A) 86 %; Platelet Count 311 k/uL (150-450); RBC 3.98 m/uL (3.80-5.40); RDW 12.5 % (11.5-15.5); WBC 13.2 k/uL (3.8-10.6)
[2020-05-15] MEDS ORDERED: traMADol 50 MG TAB PO SCH (13:00)
--- NOTE | 2020-05-15 13:04 | P.PN ---
Subjective Progress Note Date: 05/15/20 Principal diagnosis: Status post right total knee arthroplasty Patient was evaluated today bedside, she is resting comfortably. She did do very well physical therapy. She did have quite a bit of pain after getting back in bed, this is improved after resting. She denies any headaches, lightheadedness, chest pain or shortness of breath at this time. Objective - Vital Signs Vital signs: Vital Signs Temp 97.9 F 05/15/20 07:00 Pulse 72 05/15/20 08:00 Resp 16 05/15/20 08:00 BP 152/78 05/15/20 07:00 Pulse Ox 97 05/15/20 07:00 Intake & Output 05/14/20 05/15/20 05/15/20 18:59 06:59 18:59 Intake Total 1151 300 Output Total 45 Balance 1106 300 Weight 83.2 kg Intake: IV 1151 Oral 300 Output: Estimated Blood Loss 45 Other: Voiding Method Toilet Toilet # Voids 1 1 - Exam Right lower extremity: Incision is clean, dry, and intact. The foam dressing is in good condition. There is minimal soft tissue swelling and ecchymosis surrounding the medial and lateral aspects of the incision. Calf is soft, no tenderness with palpation. Plantar flexion, dorsiflexion, EHL, FHL are intact. Sensory exam to light touch throughout the extremity is intact, dorsal pedis pulses 2+. - Labs CBC & Chem 7: 05/15/20 07:28 05/14/20 11:19 Labs: Abnormal Lab Results - Last 24 Hours (Table) 05/15/20 Range/Units 07:28 WBC 13.2 H (3.8-10.6) k/uL Neutrophils # 11.4 H (1.3-7.7) k/uL Assessment and Plan Assessment: Status post right total knee arthroplasty Plan: Pain control, will likely increase oral medication for discharge DVT prophylaxis, continue subcu medication while in hospital, plan for aspirin 81 mg twice a day at discharge Wound care instructions were discussed, icing and elevating techniques discussed Encourage incentive spirometer Medical recommendations Discharge planning: Patient will be reevaluated this afternoon, if she has improved will plan for discharge home today. Time with Patient: Less than 30
--- NOTE | 2020-05-15 14:53 | P.CONS ---
History of Present Illness - Reason for Consult Hypertension, leukocytosis - History of Present Illness Patient is a pleasant 69-year-old female admitted for right knee arthroplasty patient had a total knee arthroplasty. Does have a surgical drain. Patient does have leukocytosis does have a Brar catheter patient the was having significant pain because of which patient is not being discharged today. Pedro minnie blood pressure is bit elevated does use Norvasc at home. Patient denied any fever chills dysuria cough. Review of Systems REVIEW OF SYSTEMS: CONSTITUTIONAL: No fever, no malaise, no fatigue. HEENT: No recent visual problems or hearing problems. Denied any sore throat. CARDIOVASCULAR: No chest pain, orthopnea, PND, no palpitations, no syncope. PULMONARY: No shortness of breath, no cough, no hemoptysis. GASTROINTESTINAL: No diarrhea, no nausea, no vomiting, no abdominal pain. NEUROLOGICAL: No headaches, no weakness, no numbness. HEMATOLOGICAL: Denies any bleeding or petechiae. GENITOURINARY: Denies any burning micturition, frequency, or urgency. MUSCULOSKELETAL/RHEUMATOLOGICAL: Pain as mentioned above ENDOCRINE: Denies any polyuria or polydipsia. The rest of the 14-point review of systems is negative. Past Medical History Past Medical History: Hypertension, Osteoarthritis (OA), Thyroid Disorder Additional Past Medical History / Comment(s): pt. states taking oral potassium for a week because her PCP said her potassium was a little low History of Any Multi-Drug Resistant Organisms: None Reported Past Surgical History: Appendectomy, Section, Cholecystectomy, Hysterectomy, Orthopedic Surgery Additional Past Surgical History / Comment(s): partial thyroid removal, cervical fusion C-5, C-6 Past Anesthesia/Blood Transfusion Reactions: No Reported Reaction Past Psychological History: No Psychological Hx Reported Smoking Status: Former smoker Past Alcohol Use History: None Reported Additional Past Alcohol Use History / Comment(s): quit smoking 1989, smoked for 10 yrs. <ppd Past Drug Use History: None Reported - Past Family History Mother Family Medical History: COPD Sister(s) Family Medical History: Cancer Additional Family Medical History / Comment(s): breast Medications and Allergies Home Medications Medication Instructions Recorded Confirmed Type Levothyroxine Sodium 88 mcg PO DAILY 12/16/18 05/14/20 History Multivitamins, Thera [Multivitamin 1 tab PO DAILY 12/16/18 05/14/20 History (formulary)] Naproxen Sodium [Aleve] 440 mg PO Q12HR PRN 12/16/18 05/14/20 History Thyroid, Pork [[place] Thyroid] 30 mg PO DAILY 12/16/18 05/14/20 History amLODIPine [Norvasc] 5 mg PO DAILY 12/16/18 05/14/20 History Potassium Chloride [Klor-Con 10] 20 meq PO DIRECTED 05/09/20 05/14/20 History Allergies Allergy/AdvReac Type Severity Reaction Status Date / Time No Known Allergies Allergy Verified 05/14/20 11:06 Physical Exam Vitals: Vital Signs Temp Pulse Pulse Resp BP BP BP 05/15/20 08:00 72 16 05/15/20 07:00 97.9 F 72 16 152/78 05/15/20 01:00 97.5 F L 78 20 130/77 05/15/20 00:00 78 05/14/20 19:30 97.7 F 79 20 115/77 05/14/20 17:05 82 144/86 05/14/20 16:50 76 142/84 05/14/20 16:35 83 143/85 05/14/20 16:05 97.6 F 98 18 151/93 05/14/20 15:45 107 H 16 136/64 05/14/20 15:30 95 16 127/65 05/14/20 15:15 98 16 138/71 05/14/20 15:06 97.0 F L 120 H 16 131/79 Pulse Ox 05/15/20 08:00 05/15/20 07:00 97 05/15/20 01:00 95 05/15/20 00:00 05/14/20 19:30 93 L 05/14/20 17:05 99 05/14/20 16:50 99 05/14/20 16:35 100 05/14/20 16:05 100 05/14/20 15:45 97 05/14/20 15:30 97 05/14/20 15:15 97 05/14/20 15:06 99 Intake and Output 05/14/20 05/15/20 05/15/20 22:59 06:59 14:59 Intake Total 200 100 Balance 200 100 Intake: Oral 200 100 Other: Voiding Method Toilet Toilet # Voids 1 1 2 Weight 83.2 kg PHYSICAL EXAMINATION: GENERAL: The patient is alert and oriented x3, not in any acute distress. Well developed, well nourished. HEENT: Pupils are round and equally reacting to light. EOMI. No scleral icterus. No conjunctival pallor. Normocephalic, atraumatic. No pharyngeal erythema. No thyromegaly. CARDIOVASCULAR: S1 and S2 present. No murmurs, rubs, or gallops. PULMONARY: Chest is clear to auscultation, no wheezing or crackles. ABDOMEN: Soft, nontender, nondistended, normoactive bowel sounds. No palpable organomegaly. MUSCULOSKELETAL: No joint swelling or deformity. EXTREMITIES: No cyanosis, clubbing, or pedal edema. Right knee postsurgically packed and covered with an Maciej bandage. Patient has an adductor canal catheter for pain management NEUROLOGICAL: Gross neurological examination did not reveal any focal deficits. SKIN: No rashes. Results CBC & Chem 7: 05/15/20 07:28 05/14/20 11:19 Labs: Abnormal Lab Results - Last 24 Hours (Table) 05/15/20 Range/Units 07:28 WBC 13.2 H (3.8-10.6) k/uL Neutrophils # 11.4 H (1.3-7.7) k/uL Assessment and Plan Plan: -Leukocytosis: No evidence of infection, patient will continue to incentive spirometry no further workup is necessary -Hypertension patient will be resumed on amlodipine -Right knee arthroplasty, patient is presently on Lovenox for DVT prophylaxis pain management as per primary service -Hypothyroidism: Resume her thyroid medications -Mild sinus tachycardia secondary to pain.
[2020-05-15] MEDS: SENNOSIDES-DOCUSATE SODIUM 1 EACH TAB PO SCH (20:53)
[2020-05-16] MEDS: HYDROcodone/APAP 5-325MG 1 EACH TAB PO PRN ×2 (01:55→08:29)
[2020-05-16] MEDS: LACTATED RINGERS 1,000 ML IV SCH ×2 (04:07)
[2020-05-16] MEDS: traMADol 50 MG TAB PO PRN ×2 (06:22→12:48)
[2020-05-16] MEDS ORDERED: LEVOTHYROXINE 88 MCG TAB PO SCH (06:30)
[2020-05-16 08:05] VITALS: BP 158/79; PULSE 66; RESP 16; TEMP 98.9
[2020-05-16] MEDS: MELOXICAM 7.5 MG TAB PO SCH (08:27)
[2020-05-16] MEDS: ENOXAPARIN 30 MG/0.3 ML SYRINGE SQ SCH (08:27)
[2020-05-16] MEDS ORDERED: MULTIVITAMINS, THERA 1 EACH TAB PO SCH (09:00)
[2020-05-16] MEDS ORDERED: amLODIPine 5 MG TAB PO SCH (09:00)
[2020-05-16] MEDS ORDERED: THYROID, PORK 30 MG TAB PO SCH (09:00)
--- NOTE | 2020-05-16 10:50 | P.PN ---
Subjective Progress Note Date: 05/16/20 Principal diagnosis: Status post right total knee arthroplasty Patient was evaluated today bedside, she is resting comfortably. She did well with therapy today. Her pain is better controlled today. She denies any headaches, lightheadedness, chest pain or shortness of breath at this time. Objective - Vital Signs Vital signs: Vital Signs Temp 98.9 F 05/16/20 07:00 Pulse 66 05/16/20 08:00 Resp 16 05/16/20 08:00 BP 158/79 05/16/20 07:00 Pulse Ox 93 L 05/16/20 07:00 Intake & Output 05/15/20 05/16/20 05/16/20 18:59 06:59 18:59 Other: Voiding Method Toilet Toilet Toilet # Voids 2 1 - Exam Right lower extremity: Incision is clean, dry, and intact. The foam dressing is in good condition. There is minimal soft tissue swelling and ecchymosis surrounding the medial and lateral aspects of the incision. Calf is soft, no tenderness with palpation. Plantar flexion, dorsiflexion, EHL, FHL are intact. Sensory exam to light touch throughout the extremity is intact, dorsal pedis pulses 2+. - Labs CBC & Chem 7: 05/15/20 07:28 05/14/20 11:19 Assessment and Plan Assessment: Status post right total knee arthroplasty Plan: Pain control, plan for discharge on [place] 5 mg/25 mg DVT prophylaxis, 81 mg twice a day Wound care instructions were discussed, icing and elevating techniques discussed Home health care at discharge Medical recommendations Discharge planning: Plan for discharge home today Time with Patient: Less than 30
--- NOTE | 2020-05-16 10:57 | P.DS ---
Providers Date of admission: 05/14/2020 Expected date of discharge: 05/16/20 Attending physician: Bipin Cabrera Primary care physician: Edna Padilla Hospital Course: Date of admission: 05/14/2020 Date of discharge: 05/16/2020 Admission diagnosis: Status post right total knee arthroplasty Discharge diagnosis: Same Attending physician: Dr. Cabrera Surgical procedures: Right total knee arthroplasty Brief history: Patient is a 69-year-old female with a history of progressive primary right knee osteoarthritis. At this point patient has failed conservative treatment measures and has opted to proceed with a elective right total knee arthroplasty. Hospital course: Details of patient's surgery can be found in operative report. Patient tolerated the procedure well and was subsequently transported to orthopedic floor. Patient's orthopeidc and medical care was provided daily. Patient had daily laboratory tests performed for evaluation of overall blood counts. Patient had daily physical therapy to include strengthening range of motion as well as education with walker ambulation. Patient was treated with Lovenox for their postoperative DVT prophylaxis during their inpatient stay. Patient was noted to have a relatively uneventful postoperative course. Patient reported satisfactory pain control with oral pain medications by postoperative day 0. Patient showed satisfactory progress with physical therapy. Patient moved steadily through the program and had no difficulty meeting the goals by postoperative day 2. Given patient's otherwise satisfactory course and having met physical therapy goals, plan is to discharge patient home on postoperative day 2. Discharge condition/disposition: Patient will be discharged home in stable condition. Discharge medications: Instructions are given on resumption of patient's normal daily medications per primary care recommendation, in addition patient will be prescribed [place] 5 mg/325 mg, Colace 100 mg, aspirin 81 mg. Discharge instructions: 1. Wound care and infection precautions, keep incision dry and covered while showering, no lotions, creams, moisturizers. No soaking, tubs, pools, hottubs. Do not scrub over the incision. Okay to remove foam dressing on 05/24/2020, okay to shower over incision afterwards. 2. Weight-bear as tolerated with walker / cane until follow-up. 3. Ice and elevate when necessary. Do not exceed 20 minutes per hour with ice pack. 4. Utilize compression sleeve until seen at first follow up appointment. 5. Visiting nursing care. 6. Home physical therapy including home CPM. 7. Pain meds and anticoagulants per prescription. 8. Pain medication has potential to cause constipation. Increase oral fluid and fiber intake. Contact primary care provider if you have not had a bowel movement within 48 hours after discharge 9. No anti-inflammatory medication until discussed at first post operative visit, this including Motrin, Aleve, Mobic, Diclofenac. 10. Follow up in office at 2 weeks postop with Fredo Kurtz PA-C 11. Follow up with your primary care doctor 7-10 days after discharge. 12. Contact [facility] with any questions, . Procedures: Right total knee arthroplasty Patient Condition at Discharge: Good Plan - Discharge Summary Discharge Rx Participant: Yes New Discharge Prescriptions: New Aspirin [Adult Low Dose Aspirin EC] 81 mg PO BID #60 tablet. Docusate [Colace] 100 mg PO DAILY #30 capsule Hydrocodone/Acetaminophen [[place] 5-325] 1 - 2 each PO Q6HR PRN #56 tab PRN Reason: Pain No Action amLODIPine [Norvasc] 5 mg PO DAILY Thyroid, Pork [[place] Thyroid] 30 mg PO DAILY Multivitamins, Thera [Multivitamin (formulary)] 1 tab PO DAILY Levothyroxine Sodium 88 mcg PO DAILY Naproxen Sodium [Aleve] 440 mg PO Q12HR PRN PRN Reason: pain Potassium Chloride [Klor-Con 10] 20 meq PO DIRECTED Discharge Medication List Levothyroxine Sodium 88 mcg PO DAILY 12/16/18 [History] Multivitamins, Thera [Multivitamin (formulary)] 1 tab PO DAILY 12/16/18 [History] Naproxen Sodium [Aleve] 440 mg PO Q12HR PRN 12/16/18 [History] Thyroid, Pork [[place] Thyroid] 30 mg PO DAILY 12/16/18 [History] amLODIPine [Norvasc] 5 mg PO DAILY 12/16/18 [History] Potassium Chloride [Klor-Con 10] 20 meq PO DIRECTED 05/09/20 [History] Aspirin [Adult Low Dose Aspirin EC] 81 mg PO BID #60 tablet. 05/16/20 [Rx] Docusate [Colace] 100 mg PO DAILY #30 capsule 05/16/20 [Rx] Hydrocodone/Acetaminophen [[place] 5-325] 1 - 2 each PO Q6HR PRN #56 tab 11/25/20 [Rx] Follow up Appointment(s)/Referral(s): [facility]ipment [NON-STAFF] - As Needed (Continuous Passive Motion knee machine) [facility], [NON-STAFF] - As Needed Raulito Kurtz PAC [PHYSICIAN TRIAGE RN] - 05/30/20 2:10 pm Edna Padilla DO [Primary Care Provider] - 1 Week Activity/Diet/Wound Care/Special Instructions: Orthopedic Discharge Instructions: 1. Wound care and infection precautions, keep incision dry and covered while showering, no lotions, creams, moisturizers. No soaking, pools, hot tubs. Do not scrub over incision. Okay to remove foam dressing on 05/24/2020, okay to shower over the incision after removal of the dressing 2. Weight-bear as tolerated with walker / cane until follow-up. 3. Ice and elevate when necessary. Do not exceed 20 minutes per hour with ice pack. 4. Utilize compression sleeve until seen at first follow up appointment. 5. Pain meds and anticoagulants per prescription. 6. Pain medication has potential to cause constipation. Increase oral fluid and fiber intake. Contact primary care provider if you have not had a bowel movement within 48 hours after discharge. 7. No anti-inflammatory medication until discussed at first post operative visit, this including Motrin, Aleve, Mobic, Diclofenac. 8. Follow up in office at 2 weeks postop with Fredo Kurtz PA-C 9. Follow up with your primary care doctor 7-10 days after discharge. 10. Contact [facility] with any questions, . Discharge Disposition: HOME WITH HOME HEALTH SERVICES
--- NOTE | 2020-05-16 11:24 | P.PN ---
Subjective Patient's pain is better controlled today. Will be discharged today. No changes and discharge medications are being made. Constitutional: Denied any fatigue denied any fever. Cardio vascular: denied any chest pain, palpitations Gastrointestinal denied any nausea vomiting Pulmonary: Denied any shortness of breath cough Neurologic denied any new focal deficits All inpatient medications were reviewed and appropriate changes in these medications as dictated in the interval history and assessment and plan. Objective - Vital Signs Vital signs: Vital Signs Temp 98.9 F 05/16/20 07:00 Pulse 66 05/16/20 08:00 Resp 16 05/16/20 08:00 BP 158/79 05/16/20 07:00 Pulse Ox 93 L 05/16/20 07:00 Intake & Output 05/15/20 05/16/20 05/16/20 18:59 06:59 18:59 Other: Voiding Method Toilet Toilet Toilet # Voids 2 1 - Exam PHYSICAL EXAMINATION: GENERAL: The patient is alert and oriented x3, not in any acute distress. Well developed, well nourished. HEENT: Pupils are round and equally reacting to light. EOMI. No scleral icterus. No conjunctival pallor. Normocephalic, atraumatic. No pharyngeal erythema. No thyromegaly. CARDIOVASCULAR: S1 and S2 present. No murmurs, rubs, or gallops. PULMONARY: Chest is clear to auscultation, no wheezing or crackles. ABDOMEN: Soft, nontender, nondistended, normoactive bowel sounds. No palpable organomegaly. MUSCULOSKELETAL: No joint swelling or deformity. Postsurgical dressing to the right knee EXTREMITIES: No cyanosis, clubbing, or pedal edema. NEUROLOGICAL: Gross neurological examination did not reveal any focal deficits. SKIN: No rashes. - Labs CBC & Chem 7: 05/15/20 07:28 05/14/20 11:19 Assessment and Plan Plan: -Leukocytosis: No evidence of infection, patient will continue to incentive spirometry no further workup is necessary -Hypertension patient did receive amlodipine, patient blood pressure elevation is probably because of pain. Further management as an outpatient, patient will be asked to check the blood pressure at home. -Right knee arthroplasty, patient is presently on Lovenox for DVT prophylaxis pain management as per primary service -Hypothyroidism: Resume her thyroid medications -Mild sinus tachycardia secondary to pain which resolved at this time.
== END 2020-05-16 14:45 | disposition home health service (06) | DRG 470 ==
LOC: OR 10:49 → 4SSUR 15:39 → OR 05-15 13:42 → 4SSUR 05-15 16:23
PROVIDERS: ADMIT Orthopaedic Surgery; ATTEND Orthopaedic Surgery
PROC: 0SRC0J9 Replacement of Right Knee Joint with Synthetic Substitute, Cemented, Open Approach (ICD-10-PCS; principal; 2020-05-14 12:45)
DX: M17.11 Unilateral primary osteoarthritis, right knee (principal); D72.829 Elevated white blood cell count, unspecified; E89.0 Postprocedural hypothyroidism; I10 Essential (primary) hypertension; Z79.890 Hormone replacement therapy; Z79.899 Other long term (current) drug therapy; Z87.891 Personal history of nicotine dependence; Z87.19 Personal history of other diseases of the digestive system; Z90.49 Acquired absence of other specified parts of digestive tract; Z90.710 Acquired absence of both cervix and uterus; Z87.42 Personal history of other diseases of the female genital tract; Z98.1 Arthrodesis status; Z98.890 Other specified postprocedural states; Z98.891 History of uterine scar from previous surgery; Z82.5 Family history of asthma and other chronic lower respiratory diseases; Z80.3 Family history of malignant neoplasm of breast
CPT/HCPCS: 64448; 76942; 84132; 85025; 88300

== ENCOUNTER → 2024-03-22 | Outpatient (CLI) | payer MEDICARE, BC ==
--- NOTE | 2024-03-22 10:29 | CA ---
Exercise Stress Test Report Name: Chelsea Adkins Exam Date: 03/22/2024 08:49 Exam Location: [place] Stress Ht (in): 62 Wt (lb): 160 BSA: 1.74 Ordering Phys: Bob Lima MD Referring Phys: PARDEEP Technologist: Corky Zuniga Age: 73 Gender: F : 1950 Procedure CPT: Indications: I10. ESSENTIAL (PRIMARY) HYPERTENSION ICD-10 Codes: Patient History: PALPITATIONS, HTN, PRIOR SMOKER Medications: LEVOTHYROXINE, LISINOPRIL, AMLODIPINE Meds past 24 hrs: Pretest Chest Pain: STRESS TEST Henrique Protocol Exercise Duration (min:sec): 04:[address] Depressions (mm): Angina Score: Jimenes Score: Resting HR (bpm): 94 Peak HR (bpm): 184 Resting BP (mmHg): 138 / 75 Peak BP (mmHg): / 91 MPHR: 146 Target HR: 124 % MPHR: 126 METS: 7.1 Total Dose: Peak Dose: Atropine: Double Product: BP Response: Stress Termination: MAX EXERTION/TARGET HR Stress Symptoms: DYSPNEA Stress Summary: ECG ANALYSIS Resting ECG: Normal sinus rhythm left axis deviation Stress ECG: Exercised on Henrique protocol for 4 and half minutes achieving 85% of predicted maximal heart rate without chest pain or diagnostic ST segment depression occasional PVCs were noted during exercise CONCLUSIONS Poor exercise tolerance Negative stress test by EKG criteria Consider stress imaging study if clinically indicated Dr. Enrico Gandhi MD (Electronically Signed) Final Date: 22 March 2024 10:28
== END | disposition home or self-care (01) ==
LOC: RADNMMAIN 08:06
PROVIDERS: ATTEND Family Medicine
DX: I10 Essential (primary) hypertension (principal); I20.89 Other forms of angina pectoris; R00.2 Palpitations; Z87.891 Personal history of nicotine dependence
CPT/HCPCS: 93017